=== PATIENT | male | born 1995 | race American Indian/Alaskan Native ===

== ENCOUNTER 2018-06-17 15:53 | Inpatient (IN) | payer OTHER ==
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
[2018-06-17 17:41] LABS: URINE BILIRUBIN NEGATIVE (NEGATIVE); URINE BLOOD NEGATIVE (NEGATIVE); URINE CLARITY Clear (Clear); URINE COLOR Yellow (YELLOW); URINE GLUCOSE (UA) NORMAL (Normal); URINE LEUKOCYTE ESTERASE NEG Leu/uL (Negative); URINE PROTEIN NEGATIVE (NEGATIVE); URINE UROBILINOGEN NORMAL mg/dL (0.2-1.0)
[2018-06-17 17:46] LABS: ALB/GLOB RATIO 1.6 (1.0-2.1); ALT/SGPT 14 U/L (21-72); AST/SGOT 33 U/L (17-59); BLOOD UREA NITROGEN 9 mg/dL (9-20); CALCIUM 10.1 mg/dl (8.6-10.4); GFR NON-AFRICAN AMERICAN > 60
[2018-06-17 17:47] LABS: BASO # 0.1 K/uL (0.0-0.2); BASO % 0.6 % (0.0-2.0); EOS % 0.1 % (0.0-4.0); HEMOGLOBIN 14.5 g/dL (12.0-18.0); LYMPH # 0.8 K/uL (1.0-4.3); LYMPH % 8.6 % (20.0-40.0); MEAN CELL VOLUME 86.5 fL (80.0-94.0); MEAN CORPUSCULAR HEMOGLOBIN 29.2 pg (27.0-31.0); MEAN CORPUSCULAR HGB CONC 33.8 g/dL (33.0-37.0); MEAN PLATELET VOLUME 10.1 fL (7.2-11.7); MONO # 0.5 K/uL (0.0-0.8); MONO % 5.8 % (0.0-10.0); NEUT # 7.9 K/uL (1.8-7.0); NEUT % 84.9 % (50.0-75.0); PLATELET COUNT 264 K/uL (130-400); RBC 4.95 Mil/uL (4.40-5.90); RED CELL DISTRIBUTION WIDTH 13.7 % (11.5-14.5); WHITE BLOOD COUNT 9.3 K/uL (4.8-10.8)
[2018-06-17 17:49] LABS: BARBITURATES, UR NEGATIVE (NEGATIVE); BENZODIAZEPINES, UR NEGATIVE (NEGATIVE); OPIATES, UR NEGATIVE (NEGATIVE); PHENCYCLIDINE, UR NEGATIVE (NEGATIVE)
[2018-06-17 18:15] LABS: BANDS 1 % (0-2); LYMPHOCYTE 4 % (20-40); MONOCYTE 4 % (0-10); NEUTROPHIL 91 % (50-75); PLATELET ESTIMATE NORMAL (NORMAL); TOTAL CELLS COUNTED 100
[2018-06-17 18:16] LABS: HYPOCHROMIC SLIGHT; MICROCYTOSIS SLIGHT
--- NOTE | 2018-06-18 09:48 | RAD ---
Date of service: 06/18/2018 HISTORY: medical clearence COMPARISON: None available. FINDINGS: LUNGS: No active pulmonary disease. PLEURA: No significant pleural effusion identified, no pneumothorax apparent. CARDIOVASCULAR: No aortic atherosclerotic calcification present. Normal cardiac size. No pulmonary vascular congestion. OSSEOUS STRUCTURES: No significant abnormalities. VISUALIZED UPPER ABDOMEN: Normal. OTHER FINDINGS: None. IMPRESSION: No acute cardiopulmonary disease appreciated.
--- NOTE | 2018-06-18 23:41 | PCM.BM ---
<Leighton Garza Fartun - Last Filed: 06/18/18 23:38> Treatment Plan Problems - Problems identified on initial assessmt Delusions Date Initiated: 06/18/18 Time Initiated: 21:15 Assessment reference: NA Status: Active Thought Process Date Initiated: 06/18/18 Time Initiated: 21:15 Assessment reference: NA Status: Active Treatment assets and liabiliti Patient Assests: educated, ADL independent, good support system Patient Liabilities: other (Must be frequently redirected) - Milieu Protocol Maintain good personal hygiene: daily Encourage regular showers, daily Remind patient to perform daily oral care, every shift Assist patient to perform ADL's Conduct patient checks and document Observation sheet: Q15 minutes Maintain personal safety: every shift Educate patient to report safety concerns to staff, every shift Monitor environment for contraband/sharps Medication safety: Monitor for expected outcome, potential side effects: every shift, Assess barriers to learning: every shift, Assess readiness for medication education: every shift <Annalise Song - Last Filed: 06/22/18 11:00> - Diagnosis (1) Schizophrenia Status: Acute Interventions: 06/22/18 11:00 * Assess/adjust medications daily and /or as needed * See patient on an individual basis 7x/week to assess status of hallucinations * Discuss risks, benefits, side effects and alternatives of medications * <Trisha Walsh - Last Filed: 06/22/18 11:54> Family Contact Family involvement: Family/SO is involved Family contact: Patient agrees to contact Family contact name: Letty Toth-mother Family contacted how many times per week?: 5 - Goals for Treatment Patient goals for treatment: "I want to get better." Discharge/Continuing Care - Education Needs Education Needs: Patient Medication, Patient Coping Skills - Discharge Discharge Criteria: Tolerates medication w/o severe side effects, Free of paranoid thoughts, Reduction of target symptoms Discharge to:: Home, With Family - Treatment Team Participation Discussed with Family/SO: No Was Patient/Family/SO present at Treatment Team Meeting: Yes
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
[2018-06-20] MEDS: Divalproex 250 mg DR Tab PO SCH ×2 (10:06→17:02)
[2018-06-21] MEDS: Divalproex 250 mg DR Tab PO SCH ×3 (09:18→18:01)
--- NOTE | 2018-06-21 10:07 | CARD ---
APPROVED REPORT Date of service: 06/17/2018 EKG Measurement Heart [id number] <Conclusion> Sinus bradycardia Otherwise normal ECG
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
[2018-06-22] MEDS ORDERED: Influenza Vaccine 60 mcg/0.5 mL SYR (4YR UP) IM ONE (10:00)
[2018-06-22] MEDS ORDERED: Pneumococcal 23-Valent Vaccine IM ONE (10:00)
[2018-06-22] MEDS: Divalproex 250 mg DR Tab PO SCH ×2 (10:32→17:49)
--- NOTE | 2018-06-22 11:00 | PCM.PYCHPN ---
Psychiatric Progress Note - Psychiatric Progress Note Patient seen today, length of contact: 18 min Patient Chief Complaint: I m feeling little better. Problems Identified/Issues Discussed: Patient was seen and evaluated, chart reviewed and discussed the staff. Pt reports some improvement in the voices and the paranoia. He appears more organized and less internally preoccupied than before. He is still pacing back and forth in the hallways. He reports some improvement in the racing of thoughts, irritability and agitation. He reports depressed mood and but reports some improvement in the feelings of hopelessness and helplessness. He is taking medication but denies any side effects. He needs to stay longer for stabilization of the symptoms Supportive therapy was given. Medication Change: Yes Medical Record Reviewed: Yes Mental Status Examination - Cognitive Function Orientation: Person, Place, Situation, Time Memory: Intact Attention: WNL Concentration: WNL Association: Loose Fund of Knowledge: Poor - Mood Mood: Depressed, Anxious - Affect Affect: Constricted, Flat - Formal Thought Process Formal Thought Process: Paranoia, Loosening of associations - Suicidal Ideation Suicidal Ideation: No - Homicidal Ideation Homicidal Ideation: No Goal/Treatment Plan - Goal/Treatment Plan Need for Continued Stay: Remain at risks for inpatient hospitalization, Severe depression anxiety, Discharge may exacerbated symptoms Progress Toward Problem(s) and Goals/Treatment Plan: Brief psychotic disorder Rule out schizophrenia paranoid type continues CBT Psychoeducation Supportive therapy and group therapy and milieu therapy Increase Risperdal for psychosis Depakote for mood Hydroxyzine for anxiety Klonopin for severe anxiety Trazodone for insomnia Benztropine for side effects
[2018-06-23 06:33] VITALS: O2SAT 99
[2018-06-23] MEDS: Divalproex 250 mg DR Tab PO SCH ×2 (10:11→17:12)
--- NOTE | 2018-06-23 13:54 | PCM.PYCHPN ---
Psychiatric Progress Note - Psychiatric Progress Note Patient seen today, length of contact: 18 min Patient Chief Complaint: I m feeling little better. Problems Identified/Issues Discussed: Patient was seen and evaluated, chart reviewed and discussed the staff. As per staff, patient is less irritable less agitated than before. Pt reports some improvement in the voices and the paranoia. He appears more organized and less internally preoccupied than before. He is still pacing back and forth in the hallways. He reports some improvement in the racing of thoughts, irritability and agitation. He reports depressed mood and but reports some improvement in the feelings of hopelessness and helplessness. He is taking medication but denies any side effects. He needs to stay longer for stabilization of the symptoms Supportive therapy was given. Medication Change: Yes Medical Record Reviewed: Yes Mental Status Examination - Cognitive Function Orientation: Person, Place, Situation, Time Memory: Intact Attention: WNL Concentration: WNL Association: Loose Fund of Knowledge: Poor - Mood Mood: Depressed, Anxious - Affect Affect: Constricted, Flat - Formal Thought Process Formal Thought Process: Paranoia, Loosening of associations - Suicidal Ideation Suicidal Ideation: No - Homicidal Ideation Homicidal Ideation: No Goal/Treatment Plan - Goal/Treatment Plan Need for Continued Stay: Remain at risks for inpatient hospitalization, Severe depression anxiety, Discharge may exacerbated symptoms Progress Toward Problem(s) and Goals/Treatment Plan: Brief psychotic disorder Rule out schizophrenia paranoid type continues CBT Psychoeducation Supportive therapy and group therapy and milieu therapy Increase Risperdal for psychosis Depakote for mood Hydroxyzine for anxiety Klonopin for severe anxiety Trazodone for insomnia Benztropine for side effects
[2018-06-23] MEDS: Bacitracin 500 Units/gm Oint Foilpak UD TOP PRN (15:39)
[2018-06-24] MEDS: Divalproex 250 mg DR Tab PO SCH ×2 (09:31→17:46)
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
[2018-06-25 09:03] VITALS: RESP 18
[2018-06-25] MEDS: Divalproex 250 mg DR Tab PO SCH ×2 (09:52→17:10)
--- NOTE | 2018-06-25 21:23 | PCM.PYCHPN ---
Psychiatric Progress Note - Psychiatric Progress Note Patient seen today, length of contact: 17 min Medication Change: Yes Medical Record Reviewed: Yes Mental Status Examination - Cognitive Function Orientation: Person, Place, Situation, Time Memory: Intact Attention: WNL Concentration: WNL Association: Loose Fund of Knowledge: Poor - Mood Mood: Depressed, Anxious - Affect Affect: Constricted, Flat - Formal Thought Process Formal Thought Process: Paranoia, Loosening of associations - Suicidal Ideation Suicidal Ideation: No - Homicidal Ideation Homicidal Ideation: No Goal/Treatment Plan - Goal/Treatment Plan Need for Continued Stay: Remain at risks for inpatient hospitalization, Severe depression anxiety, Discharge may exacerbated symptoms
[2018-06-26 09:12] LABS: ALB/GLOB RATIO 1.6 (1.0-2.1); ALBUMIN 4.5 g/dL (3.5-5.0); ALT/SGPT 20 U/L (21-72); AST/SGOT 23 U/L (17-59); BLOOD UREA NITROGEN 15 mg/dL (9-20); CALCIUM 9.7 mg/dl (8.6-10.4); GFR NON-AFRICAN AMERICAN > 60
[2018-06-26] MEDS: Divalproex 250 mg DR Tab PO SCH (09:28)
[2018-06-26] MEDS: Bacitracin 500 Units/gm Oint Foilpak UD TOP PRN (17:19)
[2018-06-26] MEDS: Divalproex 500 mg DR Tab PO SCH (17:19)
--- NOTE | 2018-06-26 20:49 | CP.PCM.PCO ---
Addendum Addendum: 06/26/18 20:48 Clean area with normal saline. Apply Medihoney to affected area. Cover with nonstick gauze and secure with tape. Clean and change dressings daily.
[2018-06-26] MEDS ORDERED: Collagenase 250 Units/gm Ointment(30 gm) TOP SCH (22:00)
--- NOTE | 2018-06-27 01:10 | PCM.PYCHPN ---
Psychiatric Progress Note - Psychiatric Progress Note Patient seen today, length of contact: 16 min Medication Change: Yes Medical Record Reviewed: Yes Mental Status Examination - Cognitive Function Orientation: Person, Place, Situation, Time Memory: Intact Attention: WNL Concentration: WNL Association: Loose Fund of Knowledge: Poor - Mood Mood: Depressed, Anxious - Affect Affect: Constricted, Flat - Formal Thought Process Formal Thought Process: Paranoia, Loosening of associations - Suicidal Ideation Suicidal Ideation: No - Homicidal Ideation Homicidal Ideation: No Goal/Treatment Plan - Goal/Treatment Plan Need for Continued Stay: Remain at risks for inpatient hospitalization, Severe depression anxiety, Discharge may exacerbated symptoms
[2018-06-27 09:47] VITALS: BP 115/70; PULSE 76; TEMP 98.4
[2018-06-27] MEDS: Divalproex 500 mg DR Tab PO SCH (10:08)
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
== END 2018-06-27 11:15 | disposition home or self-care (01) | DRG 753 ==
LOC: C.ER 15:53 → C.5E 06-18 20:12
PROC: GZHZZZZ Group Psychotherapy (ICD-10-PCS; principal; 2018-06-18)
PROC: GZ58ZZZ Individual Psychotherapy, Cognitive-Behavioral (ICD-10-PCS; 2018-06-18)
PROC: GZ56ZZZ Individual Psychotherapy, Supportive (ICD-10-PCS; 2018-06-18)
DX: F31.64 Bipolar disorder, current episode mixed, severe, with psychotic features (principal); R45.851 Suicidal ideations; F23 Brief psychotic disorder; F41.9 Anxiety disorder, unspecified; G47.00 Insomnia, unspecified; Z91.410 Personal history of adult physical and sexual abuse